=== PATIENT | male | born 1970 | race African-American/Black ===

== ENCOUNTER 2021-02-27 13:27 | Emergency (ER) | payer BC, MEDICARE ==
[~2021-02-27] VITALS: Ht 182.9 cm; Wt 156.0 kg
[2021-02-27] MEDS ORDERED: METHOCARBAMOL750 MG PO (14:17)
[2021-02-27] MEDS: ACETAMINOPHEN/CODEINE 300MG - 30MG TAB PO ONE (14:34)
[2021-02-27] MEDS: KETOROLAC TROMETHAMINE 30 MG/ML VIAL IM STA (14:34)
== END 2021-02-27 16:31 | disposition home or self-care (01) ==
LOC: ER 14:20
DX: M54.5 Low back pain (principal); I10 Essential (primary) hypertension; E11.9 Type 2 diabetes mellitus without complications; G47.30 Sleep apnea, unspecified; G89.29 Other chronic pain
CPT/HCPCS: 72100; 99282; J1885